=== PATIENT | female | born 1970 | race African-American/Black ===

== ENCOUNTER 2018-07-07 05:52 | Emergency (ER) | payer SELFPAY ==
[~2018-07-07] VITALS: Ht 162.6 cm; Wt 50.8 kg
[2018-07-07 06:10] VITALS: BP 112/65
--- NOTE | 2018-07-07 06:10 | NUR ---
ED Nurse Note: Pt arrived ED from home, c/o flu like symptum for 3 days. Pt is A/O X 4. Vital signs stable at this time, waiting for orders.
[2018-07-07] MEDS ORDERED: PROMETHAZINE-C118 M1 ORAL (06:26)
[2018-07-07] MEDS ORDERED: PSEUDOEPHEDRINE60 MG PO (06:27)
--- NOTE | 2018-07-07 06:27 | Emergency Room Report ---
History of Present Illness General Chief Complaint: Upper Respiratory Illness Source: Patient Present Illness [facility] This is a 48-year-old female with no past medical history. She presents with chief complaint of cough and congestion. Onset for 2 days. Her is here for the same. No nausea no vomiting. No fever or chills. Does feel congested. Lying flat and inspiration makes it worse. [place] better sitting up. Allergies: Coded Allergies: No Known Allergies (Unverified , 07/07/18) Patient History Past Medical History: none, see triage record, old chart reviewed Past Surgical History: none Pertinent Family History: none Social History: Denies: smoking Last Menstrual Period: 07/02/2018 Now: No Immunizations: other Reviewed Nursing Documentation: PMH: Agreed; PSxH: Agreed Nursing Documentation-PMH Past Medical History: No Stated History Review of Systems Eye: Denies: eye pain, blurred vision ENT: Reports: nose congestion; Denies: ear pain, throat swelling Respiratory: Reports: cough, shortness of breath Cardiovascular: Denies: chest pain, palpitations Gastrointestinal: Denies: abdominal pain, diarrhea, nausea, vomiting Musculoskeletal: Denies: back pain, joint pain Skin: Denies: rash Neurological: Denies: headache, numbness Endocrine: Denies: increased thirst, increased urine Hematologic/Lymphatic: Denies: easy bruising All Other Systems: negative except mentioned in HPI Physical Exam Vital Signs Date Time Temp Pulse Resp B/P (MAP) Pulse Ox O2 Delivery O2 Flow Rate FiO2 07/07/18 05:56 98.4 85 22 114/69 97 Room Air vitals normal Sp02 EP Interpretation: reviewed, normal General Appearance: well appearing, no apparent distress, alert Head: normocephalic, atraumatic Eyes: bilateral eye PERRL, bilateral eye EOMI ENT: hearing grossly normal, normal pharynx Neck: full range of motion, supple, no meningismus Respiratory: chest non-tender, lungs clear, normal breath sounds Cardiovascular #1: regular rate, rhythm, no murmur Gastrointestinal: normal bowel sounds, non tender, no mass, no organomegaly, no bruit, non-distended Musculoskeletal: back normal, gait/station normal, normal range of motion Psychiatric: mood/affect normal Skin: warm/dry Medical Decision Making Diagnostic Impression: Primary Impression: Upper respiratory infection Qualified Codes: J06.9 - Acute upper respiratory infection, unspecified ER Course Patient with a viral infection. No evidence of pneumonia, ACS, PE, dissection to name a few. We'll discharge home. Last Vital Signs Date Time Temp Pulse Resp B/P (MAP) Pulse Ox O2 Delivery O2 Flow Rate FiO2 07/07/18 05:56 98.4 85 22 114/69 97 Room Air Status: unchanged Disposition: HOME, SELF-CARE Condition: Stable Scripts Pseudoephedrine Hcl* (SUDAFED*) 60 Mg Tablet 60 MG PO Q6H, #30 TAB Prov: Wayne Saldaña MD 07/07/18 Codeine/Promethazine Hcl* (PROMETHAZINE-CODEINE SYRUP*) 118 Ml Syrup 5 ML ORAL Q6H PRN for For Cough, #120 ML 0 Refills Prov: Wayne Saldaña MD 07/07/18 Referrals: NOT CHOSEN IPA/,REFERRING (PCP) Patient Instructions: Upper Respiratory Infection, Adult Additional Instructions: Increase fluids. Follow-up with your doctor in 7 days. Return if symptom worsen. Wayne Saldaña MD Jul 07, 2018 06:27
[2018-07-07 06:33] VITALS: BP 112/65
--- NOTE | 2018-07-07 06:33 | NUR ---
ER DISCHARGE NOTE: Patient is cleared to be discharged per ERMD, pt is aox4, on room air, with stable vital signs. pt was given dc and prescription instructions, pt was able to verbalize understanding, pt id band removed . pt is able to ambulate with steady gait. pt took all belongings.
== END 2018-07-07 06:33 | disposition home or self-care (01) ==
LOC: EMR 06:18
DX: J06.9 Acute upper respiratory infection, unspecified (principal)
CPT/HCPCS: 99282

== ENCOUNTER 2019-05-11 19:28 | Emergency (ER) | payer SELFPAY ==
[~2019-05-11] VITALS: Ht 162.6 cm; Wt 49.9 kg
[~2019-05-11 19:28] MED LIST: PROMETHAZINE-C118 M1 ORAL; PSEUDOEPHEDRINE60 MG PO
[2019-05-11 19:35] VITALS: BP 130/76
--- NOTE | 2019-05-11 19:35 | NUR ---
ED Nurse Note: PT walked in to ED for C/O abdominal pain with N/V/D since this morning. pt is alert x4.
--- NOTE | 2019-05-11 20:00 | NUR ---
ED Nurse Note: iv access established. left ac 18g. blood and urine collected;sent down to lab.
--- NOTE | 2019-05-11 20:05 | NUR ---
ED Nurse Note: Urine and blood sample sent down to lab
[2019-05-11 20:15] LABS: BASOPHILS % (AUTO) 1.4 % (0.0-2.0); EOSINOPHILS % (AUTO) 0.6 % (0.0-3.0); HEMATOCRIT 33.2 % (37.0-47.0); HEMOGLOBIN 10.6 G/DL (12.0-16.0); LYMPHOCYTES % (AUTO) 25.3 % (20.0-45.0); MEAN CORPUSCULAR VOLUME 74 FL (80-99); MONOCYTES % (AUTO) 5.5 % (1.0-10.0); NEUTROPHILS % (AUTO) 67.2 % (45.0-75.0); PLATELET COUNT 439 K/UL (150-450); RED BLOOD COUNT 4.47 M/UL (4.20-5.40); RED CELL DISTRIBUTION WIDTH 15.7 % (11.6-14.8); WHITE BLOOD COUNT 9.6 K/UL (4.8-10.8)
[2019-05-11 20:26] LABS: APPEARANCE,URINE CLEAR; BILIRUBIN, URINE NEGATIVE (NEGATIVE); COLOR,URINE PALE YELLOW; GLUCOSE, URINE (UA) NEGATIVE (NEGATIVE); KETONES,URINE NEGATIVE (NEGATIVE); LEUKOCYTE ESTERASE ,URINE NEGATIVE (NEGATIVE); NITRITE,URINE NEGATIVE (NEGATIVE); PH,URINE 8 (4.5-8.0); PROTEIN,URINE NEGATIVE (NEGATIVE); UROBILINOGEN,URINE NORMAL MG/DL (0.0-1.0)
[2019-05-11 20:34] LABS: ANION GAP 12 mmol/L (5-15); BLOOD UREA NITROGEN 12 mg/dL (7-18); CALCIUM 10.2 MG/DL (8.5-10.1); CARBON DIOXIDE 25 MMOL/L (21-32); CHLORIDE 101 MMOL/L (98-107); CREATININE 0.9 MG/DL (0.55-1.30); POTASSIUM 3.7 MMOL/L (3.5-5.1); SODIUM 138 MMOL/L (136-145)
[2019-05-11 20:38] LABS: ALANINE AMINOTRANSFERASE 18 U/L (12-78); ALBUMIN 4.4 G/DL (3.4-5.0); ALBUMIN/GLOBULIN RATIO 0.9 (1.0-2.7); ALKALINE PHOSPHATASE 69 U/L (46-116); ASPARTATE AMINO TRANSFERASE 18 U/L (15-37); BILIRUBIN,TOTAL 0.2 MG/DL (0.2-1.0)
--- NOTE | 2019-05-11 21:03 | Emergency Room Report ---
History of Present Illness General Chief Complaint: Abdominal Pain Source: Patient Present Illness HPI 49-year-old female presenting of severe epigastric pain associated with nausea and vomiting since this morning. Patient initial symptoms started 3 to 4 days ago with mild epigastric abdominal pain. She has been trying to fast for the holiday season and prevent herself from eating unhealthy foods. She has been drinking coffee, wine, herbal teas and meera tea, to help suppress her appetite. Patient reports today she was unable to tolerate and had 2-3 episodes of nonbloody nonbilious vomiting. She has had no history of abdominal surgeries, she denies any vaginal bleeding, discharge. Allergies: Coded Allergies: No Known Allergies (Unverified , 07/07/18) Patient History Last Menstrual Period: 04/18/19 Nursing Documentation-[facility] Past Medical History: No Stated History Review of Systems Constitutional: Denies: chills, fever Respiratory: Denies: cough, shortness of breath Cardiovascular: Denies: chest pain, palpitations Gastrointestinal: Reports: abdominal pain, nausea; Denies: diarrhea, vomiting Genitourinary: Denies: hematuria, pain Musculoskeletal: Denies: joint swelling Skin: Denies: rash, lesions Neurological: Denies: headache, dizziness Physical Exam Vital Signs Date Time Temp Pulse Resp B/P (MAP) Pulse Ox O2 Delivery O2 Flow Rate FiO2 05/11/19 19:31 97.7 98 14 129/76 (93) 98 Room Air Sp02 EP Interpretation: reviewed General Appearance: well appearing, no apparent distress, non-toxic Head: normocephalic, atraumatic Eyes: bilateral eye normal inspection ENT: hearing grossly normal, EOM grossly intact, moist mucus membranes Neck: supple Respiratory: lungs clear, normal breath sounds, no respiratory distress, speaking full sentences Cardiovascular #1: regular rate, rhythm, normal capillary refill Cardiovascular #2: 2+ radial (R), 2+ radial (L) Gastrointestinal: normal inspection, soft, no mass, no peritonitis, non- distended, no guarding, no hernia, tenderness - Epigastric Rectal: deferred Musculoskeletal: moves extm spontaneously, no lower extremity edema Neurologic: grossly normal Psychiatric: mood/affect normal Skin: warm/dry, normal turgor Medical Decision Making Diagnostic Impression: Primary Impression: Gastritis ER Course 49-year-old female presenting of severe epigastric pain associated with nausea and vomiting since this morning. Patient initial symptoms started 3 to 4 days ago with mild epigastric abdominal pain. She has been trying to fast for the holiday season and prevent herself from eating unhealthy foods. She has been drinking coffee, wine, herbal teas and meera tea, to help suppress her appetite. Patient reports today she was unable to tolerate and had 2-3 episodes of nonbloody nonbilious vomiting. She has had no history of abdominal surgeries, she denies any vaginal bleeding, discharge. Exam shows mild epigastric tenderness, no rebound no guarding ED plan will perform lab testing to observe for dehydration, give antacids and IV hydration. Laboratory Tests Test 05/11/19 20:00 White Blood Count 9.6 K/UL (4.8-10.8) Red Blood Count 4.47 M/UL (4.20-5.40) Hemoglobin 10.6 G/DL (12.0-16.0) L Hematocrit 33.2 % (37.0-47.0) L Mean Corpuscular Volume 74 FL (80-99) L Mean Corpuscular Hemoglobin 23.7 PG (27.0-31.0) L Mean Corpuscular Hemoglobin Concent 31.8 G/DL (32.0-36.0) L Red Cell Distribution Width 15.7 % (11.6-14.8) H Platelet Count 439 K/UL (150-450) Mean Platelet Volume 6.0 FL (6.5-10.1) L Neutrophils (%) (Auto) 67.2 % (45.0-75.0) Lymphocytes (%) (Auto) 25.3 % (20.0-45.0) Monocytes (%) (Auto) 5.5 % (1.0-10.0) Eosinophils (%) (Auto) 0.6 % (0.0-3.0) Basophils (%) (Auto) 1.4 % (0.0-2.0) Urine Color Pale yellow Urine Appearance Clear Urine pH 8 (4.5-8.0) Urine Specific [place] 1.010 (1.005-1.035) Urine Protein Negative (NEGATIVE) Urine Glucose (UA) Negative (NEGATIVE) Urine Ketones Negative (NEGATIVE) Urine Blood Negative (NEGATIVE) Urine Nitrite Negative (NEGATIVE) Urine Bilirubin Negative (NEGATIVE) Urine Urobilinogen Normal MG/DL (0.0-1.0) Urine Leukocyte Esterase Negative (NEGATIVE) Sodium Level 138 MMOL/L (136-145) Potassium Level 3.7 MMOL/L (3.5-5.1) Chloride Level 101 MMOL/L (98-107) Carbon Dioxide Level 25 MMOL/L (21-32) Anion Gap 12 mmol/L (5-15) Blood Urea Nitrogen 12 mg/dL (7-18) Creatinine 0.9 MG/DL (0.55-1.30) Estimate Glomerular Filtration Rate > 60 mL/min (>60) Glucose Level 111 MG/DL (74-106) H Calcium Level 10.2 MG/DL (8.5-10.1) H Total Bilirubin 0.2 MG/DL (0.2-1.0) Aspartate Amino Transferase (AST) 18 U/L (15-37) Alanine Aminotransferase (ALT) 18 U/L (12-78) Alkaline Phosphatase 69 U/L (46-116) Total Protein 9.1 G/DL (6.4-8.2) H Albumin 4.4 G/DL (3.4-5.0) Globulin 4.7 g/dL Albumin/Globulin Ratio 0.9 (1.0-2.7) L Lipase 180 U/L (73-393) Lab Results Impression CBC within normal limits other than mild elevated decrease in hemoglobin, CMP within normal limits no signs of dehydration. Urine negative Last Vital Signs Date Time Temp Pulse Resp B/P (MAP) Pulse Ox O2 Delivery O2 Flow Rate FiO2 05/11/19 19:35 97.7 95 16 130/76 98 Room Air Status: improved Reevaluation Impression Patient symptoms much improved with antacid. Discharged with Pepcid. Patient recommended to follow-up outpatient. Patient recommended dietary changes. Disposition: HOME, SELF-CARE Condition: Stable Scripts Famotidine* (Pepcid 20mg tablet*) 20 Mg Tablet 20 MG ORAL TWICE A DAY for 14 Days, #28 TAB 0 Refills Prov: Rj Sandoval M.D. 05/11/19 Patient Instructions: Gastritis, Adult Additional Instructions: Please follow-up with primary care doctor and GI doctor as soon as possible. Please refrain from eating acidic foods. Please take medications as prescribed Rj Sandoval M.D. May 11, 2019 21:03
[2019-05-11] MEDS ORDERED: FAMOTIDINE20 MG ORAL (21:23)
[2019-05-11 21:29] VITALS: BP 122/70
--- NOTE | 2019-05-11 21:29 | NUR ---
ER DISCHARGE NOTE: Patient is cleared to be discharged per ERMD, pt is aox4, on room air, with stable vital signs. pt was given dc and prescription instructions, pt was able to verbalize understanding, pt id band and iv site removed without complications. pt is able to ambulate with steady gait. pt took all belongings.
== END 2019-05-11 21:30 | disposition home or self-care (01) ==
LOC: EMR 20:05
DX: K29.70 Gastritis, unspecified, without bleeding (principal)
CPT/HCPCS: 36415; 80053; 81003; 83690; 85025; 96361; 96374; 96375; 99284; J2405; S0028